=== PATIENT | female | born 1985 | race Caucasian/White ===

== ENCOUNTER 2017-12-05 00:07 | Emergency (ER) | payer SELFPAY ==
[~2017-12-05] VITALS: Ht 160 cm; Wt 101.0 kg
[2017-12-05 00:23] LABS: GLUCOSE,POINT OF CARE 119 MG/DL (70-110)
[2017-12-05] MEDS ORDERED: ONDANSETRON HCL 4 MG/2 ML VIAL IVP ONE (02:00)
[2017-12-05] MEDS ORDERED: MORPHINE SULFATE 4 MG/ML SYRINGE IVP ONE (02:00)
[2017-12-05 02:01] VITALS: BP 144/72
== END 2017-12-05 02:48 | disposition short-term general hospital (02) ==
LOC: EMS 00:08
DX: S06.6X0A Traumatic subarachnoid hemorrhage without loss of consciousness, initial encounter (principal); Y08.89XA Assault by other specified means, initial encounter; Y93.89 Activity, other specified; Y92.89 Other specified places as the place of occurrence of the external cause; Y99.8 Other external cause status
CPT/HCPCS: 70450; 72125; 82962; 96374; 96375; 99291; J2270; J2405